=== PATIENT | female | born 1935 | race Caucasian/White ===

== ENCOUNTER 2016-07-27 16:04 | Emergency (ER) | payer MEDICARE, BC ==
[2016-07-27 16:20] VITALS: BP 151/76
--- NOTE | 2016-07-27 17:00 | UC ---
Dizzy HPI HPI Summary: 2 days ago pt developed sense that her head was "ahead of her body" -- describes trouble with balance, bouncing off the garcia to stay upright. Was having problems in different directions. Yesterday started vomiting, approx 4 times yesterday and "more" today. No blood, but did have some thick yellow vomitus at the end. Normal BMs, last one formed today without blood. Is also c/ o stiff neck with NEUMANN x 1 week, indicates R side of neck. Denies current pain - History Of Current Complaint Chief Complaint: UCGeneralIllness Stated Complaint: NECK PAIN,VOMITING Time Seen by Provider: 07/27/16 16:32 Hx Obtained From: Patient ?: No Onset/Duration: Gradual Onset, Lasting Days Timing: Constant Severity Initially: Moderate Severity Currently: Moderate Character: Lightheaded, Weak Aggravating Factor(s): Headache Alleviating Factor(s): Rest Associated Signs And Symptoms: Positive: Nausea, Vomiting, Unsteady Gait. Negative: SOB - Allergies/Home Medications Allergies/Adverse Reactions: Allergies Allergy/AdvReac Type Severity Reaction Status Date / Time Penicillins Allergy Rash Verified 07/27/16 16:20 Home Medications: Home Medications Calcium Carbonate CHEW TAB* [Tums*] 500 mg PO BID 07/27/16 [History Confirmed ] Metoprolol Tartrate TAB* [Lopressor TAB*] 25 mg PO BID 07/27/16 [History Confirmed 07/27/16] PMH/Surg Hx/FS Hx/Imm Hx Endocrine History Of: Denies: Diabetes Cardiovascular History Of: Reports: Cardiac Disorders - Open heart surgery 2015 Denies: Hypertension, Pacemaker/ICD GI/ History Of: Denies: Renal Disease - Surgical History Surgical History: Yes Surgery Procedure, Year, and Place: tonsilectomy as child. tubal lig. appy. B /L cataracts. WISDOM TEETH. Open heart surgery 10/2015 - Family History Known Family History: Positive: Cardiac Disease - Social History Occupation: Retired Lives: Alone Alcohol Use: None Substance Use Type: None Smoking Status (MU): Never Smoked Tobacco Review of Systems Constitutional: Negative Skin: Negative Eyes: Negative ENT: Negative Respiratory: Negative Cardiovascular: Negative Gastrointestinal: Vomiting Genitourinary: Negative Motor: Negative Neurovascular: Negative Musculoskeletal: Negative Neurological: Headache, Weakness Psychological: Negative All Other Systems Reviewed And Are Negative: Yes Physical Exam Triage Information Reviewed: Yes Appearance: No Pain Distress, Well-Nourished Vital Signs: Initial Vital Signs Temp 99.5 F 07/27/16 16:14 Pulse 66 07/27/16 16:14 Resp 14 07/27/16 16:14 BP 151/76 07/27/16 16:14 Pulse Ox 95 07/27/16 16:14 Vital Signs Reviewed: Yes Eye Exam: Other - EOM-I Eyes: Positive: Conjunctiva Clear ENT Exam: Normal ENT: Positive: Normal ENT inspection, Hearing grossly normal, Pharynx normal, TMs normal Neck: Positive: Supple, No Lymphadenopathy, Tenderness @ - R SCM. Negative: Nuchal Rigidity - able to comfortably drop chin to chest Respiratory Exam: Normal Respiratory: Positive: Chest non-tender, Lungs clear, Normal breath sounds, No respiratory distress, No accessory muscle use Cardiovascular: Positive: RRR, Murmur:Sys:Grade _?_/ - II Abdomen Description: Positive: Nontender, Soft. Negative: CVA Tenderness (R), CVA Tenderness (L) Musculoskeletal: Positive: Strength Limited @ - generalized weakness Neurological Exam: Other - seated rhomberg negative, markedly unstable gait Neurological: Positive: Muscle Tone Normal Psychological Exam: Normal Skin Exam: Normal Dizzy Course/Dx - Differential Dx/Diagnosis Differential Diagnosis/HQI/PQRI: CVA, Hypovolemia, Labyrinthitis, Transient Ischemic Attack Provider Diagnoses: disequilibrium. vomiting. cervical strain - Physician Notifications Discussed Patient Care With: Carlos Kimbrough Time Discussed With Above Provider: 17:04 Instructed by Provider To: Will See In ED Discharge - Discharge Plan Condition: Stable Disposition: [facility]
[2016-07-27] MEDS ORDERED: NS 0.9% 1000 ML* 1,000 ML IV ONE (17:01)
== END 2016-07-27 17:20 | disposition short-term general hospital (02) ==
LOC: UCCORT 16:04
DX: S16.1XXA Strain of muscle, fascia and tendon at neck level, initial encounter (principal); X58.XXXA Exposure to other specified factors, initial encounter; Y92.9 Unspecified place or not applicable; R11.10 Vomiting, unspecified; R42 Dizziness and giddiness; Z88.0 Allergy status to penicillin
CPT/HCPCS: 99213; G0463